=== PATIENT | female | born 1950 | race Caucasian/White ===

== ENCOUNTER 2020-12-04 06:06 | Inpatient (IN) ==
[~2020-12-04 06:06] MED LIST: ACETAMINOPHEN 500 MG TABLET PO ONE; FAMOTIDINE 20 MG TABLET PO ONE; GABAPENTIN 400 MG CAPSULE PO ONE
[2020-12-04] MEDS ORDERED: MIDAZOLAM 2 MG/2 ML VIAL ONE (06:48)
[2020-12-04] MEDS ORDERED: BUPIVACAINE MPF 0.25% 30 ML VIAL ONE (06:48)
[2020-12-04] MEDS ORDERED: fentaNYL 100 MCG/2 ML VIAL ONE (06:49)
[2020-12-04] MEDS ORDERED: INDOCYANINE GREEN 25 MG VIAL IV ONE (06:55)
[2020-12-04] MEDS ORDERED: TISSUE ADHESIVE 1 EACH APPLICATOR TOP ONE (06:55)
[2020-12-04] MEDS ORDERED: ERTAPENEM 1,000 MG in SODIUM CHLORIDE 0.9% 100 ML IV ONE (07:00)
[2020-12-04] MEDS ORDERED: ALVIMOPAN 12 MG CAPSULE PO ONE (07:00)
[2020-12-04] MEDS: LACTATED RINGERS 1,000 ML IV SCH ×3 (07:20→14:30)
[2020-12-04] MEDS ORDERED: ePHEDrine 50 MG/ML VIAL ONE (08:00)
[2020-12-04] MEDS ORDERED: SEVOFLURANE 1 UNIT/15 MINUTE INH ONE ×3 (08:45→09:34)
[2020-12-04] MEDS ORDERED: ROCURONIUM 50 MG/5 ML VIAL IV ONE (08:45)
[2020-12-04] MEDS ORDERED: propofoL 200 MG/20 ML VIAL IV ONE (08:45)
[2020-12-04] MEDS ORDERED: GLYCOPYRROLATE 0.4 MG/2 ML VIAL ONE (09:25)
[2020-12-04] MEDS ORDERED: ONDANSETRON 4 MG/2 ML VIAL ONE ×2 (09:26→10:22)
[2020-12-04] MEDS ORDERED: SUGAMMADEX 200 MG/2 ML VIAL IV ONE (09:26)
[2020-12-04] MEDS ORDERED: ONDANSETRON 4 MG/2 ML VIAL IV PRN (10:20)
[2020-12-04] MEDS ORDERED: HYDROmorphone 2 MG/1 ML VIAL ONE (10:22)
[2020-12-04] MEDS: HYDROmorphone 2 MG/1 ML VIAL IV PRN ×4 (10:25→10:45)
[2020-12-04] MEDS ORDERED: HYDROmorphone 2 MG/1 ML VIAL IV PRN (11:17)
[2020-12-04] MEDS: KETOROLAC 15 MG/1 ML VIAL IV SCH ×3 (12:44→23:38)
[2020-12-04 12:55] LABS: Basophils % 0.1 % (0.0-0.8); Eosinophils % 0.1 % (0.00-10.9); Hematocrit 35.2 VOL% (35.7-47.0); Hemoglobin 11.7 GM/DL (12.0-16.0); Immature Granulocytes % 0.3 %; Immature Granulocytes Absolute 0.04 #; Lymphocytes # 1.6 10*3/uL (1.4-4.0); Lymphocytes % 12.1 % (21.3-54.2); Mean Corpuscular HGB Conc 33.2 GM/DL (32-36); Mean Corpuscular Volume 86.7 FL (87-102); Mean Platelet Volume 9.4 FL (9.6-12.0); Monocytes % 1.6 % (1.7-12.7); Neutrophils % 85.8 % (38.7-73.9); Platelet Count 274 T/CUMM (130-400); Red Blood Count 4.06 MC/CUMM (3.8-5.5); Red Cell Distribution Width 14.3 % (9.3-17.3); White Blood Count 13.4 T/CUMM (4-12)
[2020-12-04 13:24] LABS: Calcium 8.8 MG/DL (8.5-10.1); Potassium 3.6 MMOL/L (3.5-5.1)
[2020-12-04] MEDS: rOPINIRole 0.25 MG TABLET PO SCH ×2 (14:28→18:03)
[2020-12-04] MEDS: PANTOPRAZOLE 40 MG TABLET PO SCH (18:04)
[2020-12-04 19:23] LABS: Basophils % 0.1 % (0.0-0.8); Hematocrit 32.9 VOL% (35.7-47.0); Hemoglobin 10.8 GM/DL (12.0-16.0); Immature Granulocytes % 0.4 %; Immature Granulocytes Absolute 0.08 #; Lymphocytes # 0.8 10*3/uL (1.4-4.0); Lymphocytes % 4.3 % (21.3-54.2); Mean Corpuscular HGB Conc 32.8 GM/DL (32-36); Mean Corpuscular Volume 86.8 FL (87-102); Mean Platelet Volume 9.7 FL (9.6-12.0); Monocytes % 2.9 % (1.7-12.7); Neutrophils % 92.3 % (38.7-73.9); Platelet Count 273 T/CUMM (130-400); Red Blood Count 3.79 MC/CUMM (3.8-5.5); Red Cell Distribution Width 14.5 % (9.3-17.3); White Blood Count 17.8 T/CUMM (4-12)
[2020-12-04 20:15] LABS: Lymphocytes 3 % (20-55); Segmented Neutrophils 95 % (50-85); Total Cells Counted 100
[2020-12-04 20:16] LABS: Acanthocytes 1+; Platelet Estimate Normal
[2020-12-04] MEDS: ALVIMOPAN 12 MG CAPSULE PO SCH (20:56)
[2020-12-05] MEDS: LACTATED RINGERS 1,000 ML IV SCH ×2 (00:30→10:25)
[2020-12-05] MEDS ORDERED: ENOXAPARIN 40 MG/0.4 ML SYRINGE SUBCUT SCH (05:00)
[2020-12-05 06:07] LABS: Basophils % 0.2 % (0.0-0.8); Hematocrit 30.2 VOL% (35.7-47.0); Hemoglobin 9.9 GM/DL (12.0-16.0); Immature Granulocytes % 0.7 %; Lymphocytes # 1.9 10*3/uL (1.4-4.0); Lymphocytes % 13.7 % (21.3-54.2); Mean Corpuscular HGB Conc 32.8 GM/DL (32-36); Mean Corpuscular Volume 86.5 FL (87-102); Mean Platelet Volume 10.3 FL (9.6-12.0); Monocytes % 4.1 % (1.7-12.7); Neutrophils % 81.3 % (38.7-73.9); Platelet Count 254 T/CUMM (130-400); Red Blood Count 3.49 MC/CUMM (3.8-5.5); Red Cell Distribution Width 14.6 % (9.3-17.3); White Blood Count 13.8 T/CUMM (4-12)
[2020-12-05 06:19] LABS: Calcium 8.6 MG/DL (8.5-10.1); Osmolality,Calculated 267.2 MOS/KG (273-304); Potassium 4.1 MMOL/L (3.5-5.1)
[2020-12-05] MEDS: KETOROLAC 15 MG/1 ML VIAL IV SCH ×3 (06:33→17:40)
[2020-12-05] MEDS: rOPINIRole 0.25 MG TABLET PO SCH ×4 (07:03→17:40)
[2020-12-05] MEDS: ALVIMOPAN 12 MG CAPSULE PO SCH ×2 (09:24→22:11)
[2020-12-05] MEDS: ESCITALOPRAM 10 MG TABLET PO SCH (09:24)
[2020-12-05] MEDS: MULTIVITAMIN (CENTRUM) TABLET PO SCH (09:24)
[2020-12-05] MEDS: PANTOPRAZOLE 40 MG TABLET PO SCH ×2 (09:25→16:46)
[2020-12-05] MEDS: ONDANSETRON 4 MG/2 ML VIAL IV PRN ×2 (15:59→20:52)
[2020-12-06] MEDS: KETOROLAC 15 MG/1 ML VIAL IV SCH ×4 (00:11→17:43)
[2020-12-06 05:35] LABS: Basophils % 0.2 % (0.0-0.8); Hematocrit 37.5 VOL% (35.7-47.0); Hemoglobin 12.5 GM/DL (12.0-16.0); Immature Granulocytes % 0.6 %; Lymphocytes # 1.6 10*3/uL (1.4-4.0); Lymphocytes % 10.1 % (21.3-54.2); Mean Corpuscular HGB Conc 33.3 GM/DL (32-36); Mean Platelet Volume 10.4 FL (9.6-12.0); Monocytes % 2.6 % (1.7-12.7); Neutrophils % 86.5 % (38.7-73.9); Platelet Count 298 T/CUMM (130-400); Red Blood Count 4.36 MC/CUMM (3.8-5.5); Red Cell Distribution Width 14.7 % (9.3-17.3); White Blood Count 15.9 T/CUMM (4-12)
[2020-12-06] MEDS: rOPINIRole 0.25 MG TABLET PO SCH ×5 (07:02→17:19)
[2020-12-06] MEDS: PANTOPRAZOLE 40 MG TABLET PO SCH ×2 (08:47→15:32)
[2020-12-06] MEDS: ALVIMOPAN 12 MG CAPSULE PO SCH ×2 (08:47→20:56)
[2020-12-06] MEDS: MULTIVITAMIN (CENTRUM) TABLET PO SCH (08:48)
[2020-12-06] MEDS: ESCITALOPRAM 10 MG TABLET PO SCH (08:48)
[2020-12-06] MEDS: ONDANSETRON 4 MG/2 ML VIAL IV PRN (10:44)
[2020-12-06 11:46] LABS: Calcium 9.6 MG/DL (8.5-10.1); Osmolality,Calculated 254.5 MOS/KG (273-304); Potassium 3.9 MMOL/L (3.5-5.1)
[2020-12-06] MEDS: DEXT 5% NACL 0.45% KCL 40 MEQ 40 MEQ/1,000 ML BAG IV SCH ×2 (12:03→20:54)
[2020-12-07] MEDS: KETOROLAC 15 MG/1 ML VIAL IV SCH ×2 (00:53→06:43)
[2020-12-07] MEDS: DEXT 5% NACL 0.45% KCL 40 MEQ 40 MEQ/1,000 ML BAG IV SCH (04:35)
[2020-12-07] MEDS ORDERED: DEXTROSE 5% NACL 0.9% 1,000 ML IV SCH (07:30)
[2020-12-07] MEDS: rOPINIRole 0.25 MG TABLET PO SCH ×2 (08:24→10:57)
[2020-12-07] MEDS: ESCITALOPRAM 10 MG TABLET PO SCH (08:24)
[2020-12-07] MEDS: MULTIVITAMIN (CENTRUM) TABLET PO SCH (08:24)
[2020-12-07] MEDS: PANTOPRAZOLE 40 MG TABLET PO SCH (08:25)
[2020-12-07] MEDS: ALVIMOPAN 12 MG CAPSULE PO SCH (08:25)
[2020-12-07 11:27] VITALS: BP 138/58
== END 2020-12-07 11:32 | disposition home or self-care (01) | DRG 330 ==
LOC: N.OR 06:06 → N.SDSINP 06:06 → N.3E 11:10
PROVIDERS: ADMIT Surgery; ATTEND Surgery